=== PATIENT | female | born 2000 | race Caucasian/White ===

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

== ENCOUNTER 2019-05-15 11:27 | Day surgery (SDC) | payer BC ==
--- OUTSIDE RECORDS SUMMARY | 2019-05-15 12:09 | XMS REPORT | Continuity of Care Document ---
:2000 External Reference #:[id number] Author Name NIKIA Askew Address [address] [place] [address] Care Team Providers Name Role Phone Skylar Saxena M.D. Care Team Information Underwriting Clerk Unavailable Skylar Saxena M.D. Primary Care Physician Unavailable Payers Date Identification Numbers Payment Provider Subscriber Policy Number: [id number] [place] Plan Violet Khan PayID: [id number] [address] [place] [address] Problems Description No Active Problems Family History Date Family Member(s) Observation Comments Father Diabetes Mellitus, II Mother No Current Problems First Brother No Current Problems Social History Type Date Description Comments Sex Unknown Tobacco Use Start: Unknown Never Smoked Cigarettes ETOH Use Denies alcohol use Allergies, Adverse Reactions, Alerts Description No Known Drug Allergies Medications Description No Active Medications Vital Signs Date Vital Result Comment 05/15/2019 10:38am BP Systolic 122 mmHg BP Diastolic 72 mmHg Heart Rate 80 /min Body Temperature 98.4 F Height 63 inches 5'3" Weight 152.00 lb BMI (Body Mass Index) 26.9 kg/m2 Body Mass Index Percentile 87 % Weight Percentile 82nd Height Percentile 31 % 05/27/2018 2:13pm BP Systolic 112 mmHg BP Diastolic 60 mmHg Heart Rate 72 /min Body Temperature 98.8 F Respiratory Rate 16 /min Height 63 inches 5'3" Weight 137.00 lb BMI (Body Mass Index) 24.3 kg/m2 Body Mass Index Percentile 77 % Weight Percentile 70th Height Percentile 31 % Encounters Type Date Location Provider Dx Diagnosis Office Visit 05/27/2018 [facility] Office Skylar Saxena N63.42 Unspecified lump in 2:20p M.D. left breast, subareolar Plan of Treatment 05/15/2019 - Marly Muse, PAR10.30 Lower abdominal pain, unspecifiedComments: Sent to [facility] ER, report given to Sudhakar. Patient will take private car with mother to the ER directlyfrom the office. Patient warned of consequences of not following my medical advice including , shock. Dr. Huntley consulted and agreed upon the care of this patient.AllComments:PCMHMedication Management Patient Understands medications he's taking? Yes Are there Barriers to Adherence? No Has the patient been asked about herbal supplements and therapies, and OTC meds? Yes Care Plan1. Patient has been queried about patient's goals/preferences and functional/lifestyle goals at relevant visits. Yes If relevant, describe: N/A2. Treatment goals as explained to the patient: above3. Are there barriers to meeting treatment goals? No If Yes , please describe:4. Self-Management goals as described to the patient: Yes As always, we strongly encourage a healthy diet and making physical activity a part of your every day life. If you have questions about how or where to start, please contact the office.
[2019-05-15 12:41] LABS: ABS Basophils 0.1 10^3/ul (0-0.2); ABS Eosinophils 0.1 10^3/ul (0-0.6); ABS Lymphocytes 1.7 10^3/ul (1.0-4.8); ABS Monocytes 1.1 10^3/ul (0-0.8); ABS Neutrophils 6.9 10^3/ul (1.5-7.7); Eosinophil % 1.5 %; Hematocrit 37 % (35-47); Hemoglobin 12.8 g/dL (12.0-16.0); Mean Corpuscular HGB Conc 35 g/dL (31-36); Mean Corpuscular Hemoglobin 30 pg (27-31); Mean Corpuscular Volume 87 fL (80-97); Mean Platelet Volume 7.4 fL (7.4-10.4); Nucleated Red Blood Cells % 0.2; Platelet Count 257 10^3/uL (150-450); Red Blood Count 4.21 10^6 /uL (3.70-4.87); Red Cell Distribution Width 13 % (10-15)
[2019-05-15 12:59] LABS: ALT 8 U/L (7-52); AST 11 U/L (13-39); Albumin/Globulin Ratio 1.5 (1-3); Alkaline Phosphatase 86 U/L (34-104); Anion Gap 5 mmol/L (2-11); Blood Urea Nitrogen 7 mg/dL (6-24); C Reactive Protein 52.42 mg/L (<8.01); CO2 Carbon Dioxide 25 mmol/L (22-32); Calcium 8.7 mg/dL (8.6-10.3); Chloride 106 mmol/L (101-111); EGFR African American 192.3 (>60); EGFR Non-African American 158.9 (>60); Globulin 2.7 g/dL (2-4); Glucose 95 mg/dL (70-100); Magnesium 1.9 mg/dL (1.9-2.7); Potassium 3.7 mmol/L (3.5-5.0); Sodium 136 mmol/L (135-145); Total Protein 6.7 g/dL (6.4-8.9)
[2019-05-15] MEDS ORDERED: Iohexol 300* (CONTRAST) 10 ML SDV IV ONE (13:04)
[2019-05-15 13:05] LABS: HCG Pregnancy < 0.60 mIU/mL
[2019-05-15 13:33] LABS: Urine Appearance Cloudy; Urine Bacteria Absent (Absent); Urine Bilirubin Negative (Negative); Urine Blood 1+ (Negative); Urine Color Yellow; Urine Glucose Negative (Negative); Urine Ketones Negative (Negative); Urine Nitrite Positive (Negative); Urine Protein Negative (Negative); Urine Red Blood Cell 2+(6-10/hpf) (Absent); Urine Specific Gravity 1.017 (1.010-1.030); Urine Squamous Epithelial Cell Present (Absent); Urine Urobilinogen Negative (Negative); Urine White Blood Cell 1+(6-10/hpf) (Absent)
--- NOTE | 2019-05-15 16:37 | ED ---
Abdominal Pain/Female - HPI Summary HPI Summary: Patient is a 18-year-old female is in to the ED with a 2 day history of RLQ pain with associated nausea, and 1x emesis. Symptoms have been present 2 days , have remained constant and rated a 5/10. She states she feels well when she is lying still and not moving about, worse with movement or ambulation. Symptoms are worse with palpation and better with rest. She states she has not eaten or drank anything since last night. She denies any fevers, sweats, chills. She denies any history of abdominal surgeries. - History of Current Complaint Chief Complaint: EDAbdPain Stated Complaint: RT SIDED ABD PAIN PER PT Time Seen by Provider: 05/15/19 12:10 Hx Obtained From: Patient Hx Last Menstrual Period: 08/14/15 ?: No Onset/Duration: Sudden Onset Timing: Constant Severity Initially: Moderate Severity Currently: Moderate Pain Intensity: 3 Pain Scale Used: 0-10 Numeric Location: Discrete At: RLQ Radiates: No Character: Sharp Aggravating Factor(s): Nothing Alleviating Factor(s): Nothing Associated Signs and Symptoms: Positive: Negative - Risk Factors Ectopic Risk Factor: Negative Ovarian Torsion Risk Factor: Negative Allergies/Adverse Reactions: Allergies Allergy/AdvReac Type Severity Reaction Status Date / Time No Known Allergies Allergy Verified 08/24/17 07:31 PMH/Surg Hx/FS Hx/Imm Hx Previously Healthy: Yes Musculoskeletal History: Denies: Hx Rheumatoid Arthritis, Hx Osteoporosis - Immunization History Hx Pertussis Vaccination: No Immunizations Up to Date: Yes Infectious Disease History: No Infectious Disease History: Denies: Traveled Outside the [place] in Last 30 Days - Social History Occupation: Unemployed Lives: With Family Alcohol Use: None Hx Substance Use: No Substance Use Type: Reports: None Hx Tobacco Use: No Smoking Status (MU): Never Smoked Tobacco Review of Systems Constitutional: Negative Negative: Fever, Chills, Fatigue, Skin Diaphoresis Negative: Shortness Of Breath, Cough Negative: Abdominal Pain, Vomiting, Nausea Genitourinary: Negative Positive: no symptoms reported, see HPI Negative: Arthralgia, Myalgia Skin: Negative All Other Systems Reviewed And Are Negative: Yes Physical Exam Triage Information Reviewed: Yes - he went Vital Signs On Initial Exam: Initial Vitals Temp Pulse Resp BP Pulse Ox 98.3 F 92 18 140/86 99 05/15/19 11:31 05/15/19 11:31 05/15/19 11:31 05/15/19 11:31 05/15/19 11:31 Vital Signs Reviewed: Yes Appearance: Positive: Well-Appearing, No Pain Distress Skin: Positive: Warm, Skin Color Reflects Adequate Perfusion Head/Face: Positive: Normal Head/Face Inspection Eyes: Positive: EOMI, Conjunctiva Clear Neck: Positive: Supple, No Lymphadenopathy Respiratory/Lung Sounds: Positive: Clear to Auscultation, Breath Sounds Present Cardiovascular: Positive: RRR, Pulses are Symmetrical in both Upper and Lower Extremities - LO Abdomen Description: Positive: Other: - RLQ Musculoskeletal: Positive: Normal, Strength/ROM Intact Neurological: Positive: Sensory/Motor Intact, Alert, Oriented to Person Place, Time, Speech Normal Psychiatric: Positive: Normal, Affect/Mood Appropriate AVPU Assessment: Alert Diagnostics - Vital Signs Vital Signs Temp Pulse Resp BP Pulse Ox 05/15/19 16:20 98 F 89 18 120/80 100 05/15/19 16:18 89 153/88 100 05/15/19 16:11 120/80 05/15/19 16:01 86 100 05/15/19 15:41 103 145/99 100 05/15/19 15:11 80 111/72 100 05/15/19 15:00 73 100 05/15/19 14:11 78 93/64 99 05/15/19 14:00 79 100 05/15/19 13:41 80 117/74 100 05/15/19 13:11 86 120/46 100 05/15/19 13:00 76 100 05/15/19 12:41 80 121/66 100 05/15/19 12:11 84 146/67 100 05/15/19 11:31 98.3 F 92 18 140/86 99 - Laboratory Lab Results: Lab Results 05/15/19 05/15/19 05/15/19 Range/Units 12:33 12:33 12:33 WBC 10.0 (3.5-10.8) 10^3/uL RBC 4.21 (3.70-4.87) 10^6 /uL Hgb 12.8 (12.0-16.0) g/dL Hct 37 (35-47) % MCV 87 (80-97) fL MCH 30 (27-31) pg MCHC 35 (31-36) g/dL RDW 13 (10-15) % Plt Count 257 (150-450) 10^3/uL MPV 7.4 (7.4-10.4) fL Neut % (Auto) 69.5 % Lymph % (Auto) 17.0 % [place] % (Auto) 11.4 % Eos % (Auto) 1.5 % Baso % (Auto) 0.6 % Absolute Neuts (auto) 6.9 (1.5-7.7) 10^3/ul Absolute Lymphs (auto) 1.7 (1.0-4.8) 10^3/ul Absolute Monos (auto) 1.1 H (0-0.8) 10^3/ul Absolute Eos (auto) 0.1 (0-0.6) 10^3/ul Absolute Basos (auto) 0.1 (0-0.2) 10^3/ul Absolute Nucleated RBC 0.0 10^3/ul Nucleated RBC % 0.2 Sodium 136 (135-145) mmol/L Potassium 3.7 (3.5-5.0) mmol/L Chloride 106 (101-111) mmol/L Carbon Dioxide 25 (22-32) mmol/L Anion Gap 5 (2-11) mmol/L BUN 7 (6-24) mg/dL Creatinine 0.50 L (0.51-0.95) mg/dL Est GFR ( Amer) 192.3 (>60) Est GFR (Non-Af Amer) 158.9 (>60) BUN/Creatinine Ratio 14.0 (8-20) Glucose 95 (70-100) mg/dL Lactic Acid 0.7 (0.5-2.0) mmol/L Calcium 8.7 (8.6-10.3) mg/dL Magnesium 1.9 (1.9-2.7) mg/dL Total Bilirubin 0.70 (0.2-1.0) mg/dL AST 11 L (13-39) U/L ALT 8 (7-52) U/L Alkaline Phosphatase 86 (34-104) U/L C-Reactive Protein 52.42 H (<8.01) mg/L Total Protein 6.7 (6.4-8.9) g/dL Albumin 4.0 (3.2-5.2) g/dL Globulin 2.7 (2-4) g/dL Albumin/Globulin Ratio 1.5 (1-3) Lipase 14 (11.0-82.0) U/L Beta HCG, Quant < 0.60 mIU/mL Urine Color Urine Appearance Urine pH (5-9) Ur Specific [place] (1.010-1.030) Urine Protein (Negative) Urine Ketones (Negative) Urine Blood (Negative) Urine Nitrate (Negative) Urine Bilirubin (Negative) Urine Urobilinogen (Negative) Ur Leukocyte Esterase (Negative) Urine WBC (Auto) (Absent) Urine RBC (Auto) (Absent) Ur Squamous Epith Cells (Absent) Urine Bacteria (Absent) Urine Glucose (Negative) 05/15/19 Range/Units 13:22 WBC (3.5-10.8) 10^3/uL RBC (3.70-4.87) 10^6 /uL Hgb (12.0-16.0) g/dL Hct (35-47) % MCV (80-97) fL MCH (27-31) pg MCHC (31-36) g/dL RDW (10-15) % Plt Count (150-450) 10^3/uL MPV (7.4-10.4) fL Neut % (Auto) % Lymph % (Auto) % [place] % (Auto) % Eos % (Auto) % Baso % (Auto) % Absolute Neuts (auto) (1.5-7.7) 10^3/ul Absolute Lymphs (auto) (1.0-4.8) 10^3/ul Absolute Monos (auto) (0-0.8) 10^3/ul Absolute Eos (auto) (0-0.6) 10^3/ul Absolute Basos (auto) (0-0.2) 10^3/ul Absolute Nucleated RBC 10^3/ul Nucleated RBC % Sodium (135-145) mmol/L Potassium (3.5-5.0) mmol/L Chloride (101-111) mmol/L Carbon Dioxide (22-32) mmol/L Anion Gap (2-11) mmol/L BUN (6-24) mg/dL Creatinine (0.51-0.95) mg/dL Est GFR ( Amer) (>60) Est GFR (Non-Af Amer) (>60) BUN/Creatinine Ratio (8-20) Glucose (70-100) mg/dL Lactic Acid (0.5-2.0) mmol/L Calcium (8.6-10.3) mg/dL Magnesium (1.9-2.7) mg/dL Total Bilirubin (0.2-1.0) mg/dL AST (13-39) U/L ALT (7-52) U/L Alkaline Phosphatase (34-104) U/L C-Reactive Protein (<8.01) mg/L Total Protein (6.4-8.9) g/dL Albumin (3.2-5.2) g/dL Globulin (2-4) g/dL Albumin/Globulin Ratio (1-3) Lipase (11.0-82.0) U/L Beta HCG, Quant mIU/mL Urine Color Yellow Urine Appearance Cloudy Urine pH 7.0 (5-9) Ur Specific [place] 1.017 (1.010-1.030) Urine Protein Negative (Negative) Urine Ketones Negative (Negative) Urine Blood 1+ A (Negative) Urine Nitrate Positive A (Negative) Urine Bilirubin Negative (Negative) Urine Urobilinogen Negative (Negative) Ur Leukocyte Esterase 2+ A (Negative) Urine WBC (Auto) 1+(6-10/hpf) A (Absent) Urine RBC (Auto) 2+(6-10/hpf) A (Absent) Ur Squamous Epith Cells Present A (Absent) Urine Bacteria Absent (Absent) Urine Glucose Negative (Negative) Result Diagrams: 05/15/19 12:33 05/15/19 12:33 Lab Statement: Any lab studies that have been ordered have been reviewed, and results considered in the medical decision making process. Abdominal Pain Fem Course/Dx - Course Course Of Treatment: During the course of treatment, the patient's evaluated for right lower quadrant tenderness. On physical examination, patient appears well, lungs CTA, R. Abdominal tenderness to the right lower quadrant. Psoas and obturator negative. Positive Geneva's point tenderness. Labs obtained which show a normal white count but an elevated CRP. UA obtained which was 2+ leukocytes. CT abd/pelvis: acute appendicitis. Discussed with Dr. Costa. Will see patient in the ED. - Diagnoses Differential Diagnosis: Positive: Appendicitis, Urinary Tract Infection Provider Diagnoses: Appendicitis - Provider Notifications Discussed Care Of Patient With: Daquan Hester Instructed by Provider To: Admit As Inpatient Discharge - Sign-Out/Discharge Documenting (check all that apply): Patient Departure All imaging exams completed and their final reports reviewed: No Patient Received Moderate/Deep Sedation with Procedure: No - Discharge Plan Condition: Stable Disposition: HOME - Billing Disposition and Condition Condition: STABLE Disposition: Home
[2019-05-15] MEDS ORDERED: Midazolam* 1 MG/ML 2 ML VIAL (2 MG) ONE (17:31)
[2019-05-15] MEDS ORDERED: Succinylcholine* 20 MG/ML 10 ML VIAL ONE (17:31)
[2019-05-15] MEDS ORDERED: Propofol* 10 MG/ML 20 ML BTL ONE (17:31)
[2019-05-15] MEDS ORDERED: fentaNYL* 50 MCG/ML 2 ML VIAL (100 MCG VIAL) ONE ×2 (17:31→20:18)
[2019-05-15] MEDS ORDERED: Lidocaine 2% PF * 5 ML VIAL ONE (17:31)
[2019-05-15] MEDS ORDERED: oxyCODONE TAB* 5 MG TAB PO PRN (17:49)
[2019-05-15] MEDS ORDERED: Acetaminophen TAB* 325 MG PO PRN (17:49)
[2019-05-15] MEDS ORDERED: fentaNYL* 50 MCG/ML 2 ML VIAL (100 MCG VIAL) IV PRN (17:49)
[2019-05-15] MEDS ORDERED: DiMENhydriNATE IV* 50 MG/ML VIAL IV PUSH PRN (17:49)
[2019-05-15] MEDS ORDERED: Naloxone* 0.4 MG/ML 1 ML VIAL IV PRN (17:49)
[2019-05-15] MEDS ORDERED: ceFOXitin 2 GM IVPREMIX* 2 GM/50 ML BAG ONE (18:07)
[2019-05-15] MEDS ORDERED: Bupivacaine 0.25% W/EPI* 10 ML SDV ONE (18:49)
[2019-05-15] MEDS ORDERED: Ondansetron INJ* 2 MG/ML VIAL ONE (19:12)
[2019-05-15] MEDS ORDERED: Metoclopramide IV* 5 MG/ML 2 ML VIAL ONE (19:12)
[2019-05-15] MEDS ORDERED: Dexamethasone IV* 4 MG/ML 1 ML (4 MG) ONE (19:12)
[2019-05-15] MEDS ORDERED: Ketorolac INJ* 30 MG/ML 1 ML VIAL ONE (19:12)
[2019-05-15] MEDS ORDERED: Rocuronium* 10 MG/ML VIAL ONE (19:16)
[2019-05-15] MEDS ORDERED: Sugammadex * 200 MG/2 ML VIAL IV PUSH ONE (19:26)
[2019-05-15] MEDS ORDERED: Ibuprofen TAB* 400 MG PO PRN (20:09)
--- NOTE | 2019-05-15 20:11 | BRIEFOPN ---
Brief Operative Note - Surgery Procedures: PRE/POSTOP DX: ACUTE APPENDICITIS PROC: LAP APPENDECTOMY SURG: MECENAS ASSIST: NONE ANES: GET/RADHA EBL: <10ML IVF: LR SPEC: APPENDIX DRAIN: NONE COMPL: NONE COND: STABLE TO RR FINDINGS: EARLY ACUTE APPENDICITIS.
[2019-05-15] MEDS ORDERED: oxyCODONE TAB* 5 MG TAB ONE (20:45)
[2019-05-15] MEDS ORDERED: Ibuprofen TAB* 400 MG ONE (20:48)
[2019-05-15 21:08] VITALS: BP 118/78
--- NOTE | 2019-05-15 22:01 | OP ---
AMENDED REPORT NOW INCLUDES DATE OF OPERATION CC: Grace Beck DO * DATE OF OPERATION: 05/15/19 - SDS DATE OF : 89 SURGEON: Daquan Hester MD SWEATER OPERATOR: None. ANESTHESIOLOGIST: Lena Owens DO ANESTHESIA: General endotracheal. PRE-OP DIAGNOSIS: Acute appendicitis. POST-OP DIAGNOSIS: Acute appendicitis. OPERATIVE PROCEDURE: Laparoscopic appendectomy. ESTIMATED BLOOD LOSS: Less than 10 mL. IV FLUIDS: Crystalloid. SPECIMENS: Appendix. DRAINS: None. COMPLICATIONS: None. COUNTS: The instrument, needle, and sponge counts were correct. DESCRIPTION OF PROCEDURE: The patient was brought to the operating room and placed on the table supine. Sequential compression devices were placed in both lower extremities and general anesthesia was administered. The abdomen was prepped and draped in the usual sterile fashion. She received appropriate intravenous antibiotics and time-out was performed. Local anesthetic was infiltrated into the skin and soft tissues prior to making each incision. Entry into the abdomen was through a transumbilical vertical incision using an open technique. After accessing the peritoneal cavity, a 12 mm trocar was placed and carbon dioxide was insufflated to a pressure 15 mmHg. Under direct visualization, 5 mm trocars were placed in the suprapubic midline and left lower quadrant. The appendix was identified. There were adhesions from it to the retroperitoneum. These were lysed. The appendix was elevated, a window created in the mesentery of the appendix at the base. The appendix was then divided from the cecum with Endo GENESIS stapler with blum cartridge. The mesentery of the appendix was divided with Endo GENESIS stapler with jara cartridge. The appendix was placed in endoscopic retrieval bag and retrieved through the umbilicus. Hemostasis was assured. The ports were removed under direct visualization. The umbilicus was closed with 0-Vicryl in figure-of- eight fashion to approximate fascia. Skin was closed with 4-0 Monocryl in subcuticular fashion and DermaFlex was applied. The patient tolerated the procedure well and was extubated and transferred to recovery stable. [id number]/[facility] #: [id number] [facility] MEDICAL CENTERCourtney
== END 2019-05-15 18:43 | disposition home or self-care (01) ==
LOC: ED 11:27 → OR 18:43
PROVIDERS: ATTEND Surgery
DX: K35.80 Unspecified acute appendicitis (principal); R10.31 Right lower quadrant pain; R11.2 Nausea with vomiting, unspecified; Z87.440 Personal history of urinary (tract) infections
CPT/HCPCS: 36415; 74177; 80053; 81003; 81015; 83605; 83690; 83735; 84702; 85025; 86140; 87086; 88304; 99283; A9270-GY; C1776; J0330; J0694; J1100; J1885; J2250; J2405; J2704; J2765; J3010; Q9967